=== PATIENT | female | born 1995 | race Caucasian/White ===

== ENCOUNTER 2018-06-22 22:08 | Emergency (ER) | payer OTHER ==
[~2018-06-22] VITALS: Ht 177.8 cm; Wt 83.4 kg
[~2018-06-22 22:08] MED LIST: ATIVAN0.5 MG PO; LAMICTAL25 MG PO; LORAZEPAM0.5 MG PO; PHENTERMINE HCL15 MG PO; QUASENSE1 EACH PO; SEROQUEL XR200 MG PO
[2018-06-22 23:05] LABS: APPEARANCE CLOUDY ((CLEAR)); BILIRUBIN NEGATIVE; BLOOD MODERATE; COLOR YELLOW ((YELLOW)); GLUCOSE (STRIP) NEGATIVE; KETONES NEGATIVE; LEUKOCYTES LARGE; NITRITE NEGATIVE; PROTEIN (STRIP) 100; SPECIFIC GRAVITY 1.018 (1.000-1.030); UROBILINOGEN 0.2 MG/DL (0.2-1.0)
[2018-06-22 23:21] LABS: BACTERIA 1+ /HPF; EPITHELIAL CELLS RARE /HPF; MUCUS TRACE /LPF; RED BLOOD CELLS TNTC /HPF (0-5); UCUL ADDED? YES; WHITE BLOOD CELLS TNTC /HPF (0-5)
[2018-06-22 23:26] LABS: HEMATOCRIT 37.3 % (36.0-46.0); MCH 30.9 PG (29.0-34.0); MCHC 34.9 G/DL (30.0-36.0); MCV 88.6 FL (83-99); PLATELET COUNT 228 K/uL (156-360); RBC DIS.WIDTH-CV 11.8 % (11.8-14.6); RED BLOOD COUNT 4.21 M/uL (3.80-5.20); WHITE BLOOD COUNT 13.7 K/uL (4.1-10.2)
[2018-06-22 23:38] LABS: ALBUMIN 4.4 g/dL (3.2-4.8); CHLORIDE 104 mEq/L (99-109); POTASSIUM 4.2 mEq/L (3.7-5.4); SODIUM 138 mEq/L (136-147)
[2018-06-22 23:40] LABS: GLUCOSE 99 mg/dL (70-99)
[2018-06-22 23:41] LABS: TOTAL PROTEIN 7.4 g/dL (6.4-8.3)
[2018-06-22] MEDS ORDERED: KEFLEX500 MG PO (23:41)
[2018-06-22 23:42] LABS: TOTAL BILIRUBIN 0.4 mg/dL (0.0-1.0)
[2018-06-22 23:44] LABS: ALKALINE PHOSPHATASE 54 IU/L (3-129); CREATININE 0.7 mg/dL (0.6-1.3); GFR ESTIMATE (CALCULATED) > 59 mL/min/
[2018-06-22 23:45] LABS: UREA NITROGEN (BUN) 14 mg/dL (9-23)
[2018-06-22 23:46] LABS: AST (GOT) 14 IU/L (2-34)
[2018-06-22 23:47] LABS: ALT (GPT) 9 IU/L (3-49)
[2018-06-22 23:54] LABS: QUANTITATIVE HCG < 4.0 MIU/ML
[2018-06-22 23:58] VITALS: BP 128/86
== END 2018-06-22 23:59 | disposition home or self-care (01) ==
LOC: EME 22:08
PROVIDERS: Physician Assistant
DX: N39.0 Urinary tract infection, site not specified (principal); Z88.0 Allergy status to penicillin; Z88.2 Allergy status to sulfonamides
CPT/HCPCS: 80053; 81003; 84702; 85027; 87077; 87086; 87186; 99281; 99283